=== PATIENT | female | born 1945 | race Caucasian/White ===

== ENCOUNTER → 2016-03-19 | Outpatient (CLI) | payer OTHER, BC ==
[~2016-03-19] MED LIST: ADVIN25/60 INH; ADVIN25050 INH; ALBU0.08 INH; AMLO-110 PO; ASCO500T3 PO; ATEN50TA8 PO; CHOL2000 PO; CMD3 PO; DXY100 PO; LSN5 PO; MDRDP21 PO; MYCO500T4 PO; OMEP40CA PO; PRD10 PO; PRED-301 PO; RANI300T2 PO; SULFAMETHOXAZOLE-TMP; TIOTCAP INH; WARF4TAB PO
[2016-03-19 13:15] LABS: INR 1.2 (0.9-1.1); PARTIAL THROMBOPLASTIN RATIO 1.3; PROTHROMBIN TIME (PATIENT) 13.2 SECONDS (9.0-12.0)
[2016-03-19 13:23] LABS: BASO % 0.3 %; BASO ABS # 0.04 K/uL (0-0.2); COMPLETE YES; HEMATOCRIT 31.7 % (37-47); IG% 0.4 %; LYMPH % 3.4 %; LYMPH ABS # 0.44 K/uL (1.2-3.4); MEAN CORPUSCULAR HEMOGLOBIN 26.5 pg (25-34); MEAN CORPUSCULAR HGB CONC 31.2 g/dl (32-36); MEAN PLATELET VOLUME 9.9 fL (7.4-10.4); MONO % 8.2 %; NEUT % 85.7 %; PLATELET COUNT 277 K/uL (130-400); RED BLOOD COUNT 3.73 M/uL (4.2-5.4); WHITE BLOOD COUNT 12.83 K/uL (4.8-10.8)
[2016-03-19 17:49] LABS: POTASSIUM 4.6 mmol/L (3.5-5.1)
== END | disposition home or self-care (01) ==
LOC: C.LABMFLN 10:24
DX: Z01.812 Encounter for preprocedural laboratory examination (principal)

== ENCOUNTER → 2016-04-01 | Day surgery (SDC) | payer OTHER, BC ==
[2016-03-22 14:06] VITALS: Ht 161.3 cm; Wt 60.0 kg
[~2016-04-01] VITALS: Ht 161.3 cm; Wt 60.0 kg
[~2016-04-01] MED LIST changes: -ADVIN25050 INH; +ALBUT/IPRATROP 3MG/0.5MG NEB 3 ML VIAL INH ONE; +ALBUT/IPRATROP 3MG/0.5MG NEB 3 ML VIAL ONE; +ATROPINE SULFATE 0.1 MG/ML 5ML SYR IV PRN; -DXY100 PO; +EpHEDrine SULFATE INJ 50 MG/ML AMP IV PRN; +FENTANYL CITRATE INJ 50 MCG/1 ML 2 ML VIAL IV PRN; +FENTANYL CITRATE INJ 50 MCG/1 ML 2 ML VIAL ONE; +HYDROCODONE/ACETAMOPHEN 5/325MG TAB PO PRN; +HYDROCORTISONE SOD SUCCINATE 100 MG/2 ML VIAL ONE; +LACTATED RINGER'S 1000ML 1,000 ML IV SCH; +LIDOCAINE HCL 2% 2 ML VIAL (20MG/ML) ONE; +OFLOXACIN 0.3% OP SOLN 5 ML BTL ONE; +ONDANSETRON INJ 2 MG/ML 2 ML VIAL IV PRN; +ONDANSETRON INJ 2 MG/ML 2 ML VIAL ONE; -PRD10 PO; +PROPOFOL IV EMULSION 10 MG/ML 20 ML VIAL IV ONE; -WARF4TAB PO
--- NOTE | 2016-04-01 08:57 | History & Physical Bridge - [place] ---
H&P Re-Evaluation Bridge Note: I have examined the patient, reviewed the History & Physical and in the interval since the performance of the History & Physical I have noted the following changes of clinical significance: No changes noted
--- NOTE | 2016-04-01 09:45 | [facility] Operative Report ---
Operative Report Operative Date Apr 01, 2016. Pre-Operative Diagnosis Right Chronic Otitis Media Post-Operative Diagnosis Same Procedure(s) Performed Right Myringotomy and T-tube placement Surgeon Dr. Huffman Vehicle Dynamics Engineer Surgeon(s) None Findings R SEROUS EFFUSION Specimens None I attest to the content of the Intraoperative Record and any orders documented therein. Any exceptions are noted below.
--- NOTE | 2016-04-01 09:47 | Discharge Instructions ---
Discharge Instructions Admission Reason for Admission: Eustachian Tube Dysfunction, Right Serous O.m. Discharge Discharge Diagnosis / Problem: SAME Discharge Goals Goal(s): Improve function Activity Recommendations Activity Limitations: as noted below DRY RIGHT EAR PRECAUTIONS WHILE TUBE IN PLACE; NO NOSE BLOWING FOR 2 WEEKS; SNEEZE WITH MOUTH OPEN FOR 2 WEEKS . Current Hospital Diet Patient's current hospital diet: Discharge Diet Recommended Diet: Regular Diet Procedures Procedures Performed: Right Myringotomy and T-tube placement Pending Studies Studies pending at discharge: no Medical Emergencies . Who to Call and When: Medical Emergencies: If at any time you feel your situation is an emergency, please call 911 immediately. . Non-Emergent Contact Non-Emergency issues call your: Surgeon . . "Provider Documentation" section prepared by Yuriy Huffman. VTE Core Measure Inpt VTE Proph given/why not?: SCD's
--- NOTE | 2016-04-01 10:27 | OPERATIVE REPORT ---
DATE OF OPERATION: 04/01/2016 PREOPERATIVE DIAGNOSIS: 1. Right serous otitis media. 2. Right eustachian tube dysfunction. 3. Right conductive hearing loss. PROCEDURE: Right myringotomy and tube placement (T-tube). SURGEON: Dr. Huffman. ANESTHESIA: General laryngeal mask airway. ESTIMATED BLOOD LOSS: None. FINDINGS: Right serous middle ear effusion. SPECIMENS: None. COMPLICATIONS: None. INDICATIONS FOR THE PROCEDURE: The patient is a 71-year-old female with the above-mentioned history who presents for the above-mentioned procedure on an outpatient elective basis. DETAILS OF PROCEDURE: After informed consent had been obtained from the patient, the patient was wheeled to the operating room and placed on the operating table in the supine position. Monitors were placed. After the induction of general anesthesia via laryngeal mask airway, the patient's head was gently turned to the left and a speculum was inserted to the right external auditory canal. The operating microscope was wheeled in and used to perform the procedure. A cerumen loop was used to remove excess cerumen. A myringotomy knife was used to make a radial incision in the anteroinferior quadrant of the tympanic membrane and the middle ear space was suctioned free of a serous middle ear effusion. A silicone T-tube was then placed. Floxin drops were instilled into the middle ear space and a cotton ball was placed into the conchal bowl. This marked the end of the case. The patient tolerated the procedure well. There were no apparent complications. The patient had her laryngeal mask airway removed and was transferred to the recovery room in stable condition. I attest to the content of the Intraoperative Record and any orders documented therein. Any exceptio ns are noted below.
[2016-04-01 10:35] VITALS: TEMP 36.7
--- NOTE | 2016-04-01 10:48 | Anesthesia Progress Nt - [facility] ---
Anesthesia Post Op Note Date & Time Apr 01, 2016 at 10:48 Vital Signs Pain Intensity: 0 Vital Signs Past 12 Hours Date Time Temp Pulse Resp B/P Pulse Ox O2 Delivery O2 Flow Rate FiO2 04/01/16 10:35 36.7 78 16 147/83 96 Room Air 04/01/16 10:29 80 23 96 04/01/16 10:29 80 23 04/01/16 10:28 83 22 04/01/16 10:28 83 22 96 04/01/16 10:25 37.4 83 20 113/60 97 Room Air 04/01/16 10:23 77 22 04/01/16 10:23 78 22 113/54 96 04/01/16 10:22 83 23 96 04/01/16 10:22 83 23 04/01/16 10:18 104/55 04/01/16 10:17 81 25 04/01/16 10:17 81 25 97 04/01/16 10:13 122/60 04/01/16 10:12 83 24 97 04/01/16 10:12 83 24 04/01/16 10:08 121/64 04/01/16 10:07 86 30 04/01/16 10:07 85 30 82 04/01/16 10:03 129/57 04/01/16 10:02 83 24 04/01/16 10:02 82 24 100 04/01/16 09:58 127/64 04/01/16 09:57 89 21 04/01/16 09:57 90 21 100 04/01/16 09:55 36.5 87 18 106/65 100 Diffusion Mask 6 04/01/16 09:53 106/65 04/01/16 09:52 95 12 04/01/16 09:52 91 12 92 04/01/16 09:19 36.5 81 20 166/82 98 Room Air Notes Mental Status: alert / awake / arousable, participated in evaluation Pt Amnestic to Procedure: Yes Nausea / Vomiting: adequately controlled Pain: adequately controlled Airway Patency, RR, SpO2: stable & adequate BP & HR: stable & adequate Hydration State: stable & adequate Anesthetic Complications: no major complications apparent
[2016-04-01 10:57] VITALS: BP 157/81; PULSE 80; O2SAT 98
== END | disposition home or self-care (01) ==
LOC: X.SURG 08:05
DX: H65.01 Acute serous otitis media, right ear (principal); Z79.899 Other long term (current) drug therapy; H90.11 Conductive hearing loss, unilateral, right ear, with unrestricted hearing on the contralateral side